=== PATIENT | male | born 1970 | race Two or more races ===

== ENCOUNTER 2021-11-23 13:20 | Emergency (ER) | payer OTHER ==
[~2021-11-23] VITALS: Ht 177.8 cm; Wt 95.3 kg
[2021-11-23 15:14] LABS: Albumin 3.9 g/dL (3.4-5.0); Calcium 8.2 mg/dL (8.5-10.1); Potassium 4.2 mmol/L (3.5-5.1)
[2021-11-23 15:19] LABS: Basophils # (auto) 0 10 ^3/uL (0-0.2); Basophils % (auto) 0.5 % (0.0-2.0); Eosinophils # (auto) 0 10 ^3/uL (0-0.8); Hemoglobin 14.3 g/dL (13.5-17.5); Monocytes # (auto) 0.4 10 ^3/uL (0-1.3); Neutrophils # (auto) 5.8 10 ^3/uL (1.6-8.6)
[2021-11-23 15:20] LABS: BUN/Creatinine Ratio 8.4; Bilirubin, Total 0.4 mg/dL (0.2-1.0); Eosinophils % (auto) 0.5 % (0.0-7.0); Hematocrit 41.8 % (41.0-53.0); Lymphocytes # (auto) 1.8 10 ^3/uL (0.4-5.4); Lymphocytes % (auto) 22.4 % (10.0-50.0); Mean Corpuscular Hemoglobin 29.2 pg (28.0-32.0); Mean Corpuscular Hgb Conc. 34.2 g/dL (32.0-36.0); Mean Corpuscular Volume 85.5 fL (80.0-100.0); Monocytes % (auto) 5.3 % (0.0-12.0); Neutrophils % (auto) 71.3 % (37.0-80.0); Nucleated Red Blood Cells % 0.1 %; Red Blood Cells 4.89 10^6/uL (4.5-5.90); Red Cell Distribution Width 14.3 % (11.8-14.3); Total Protein 7.9 g/dL (6.4-8.2); White Blood Cell 8.2 10^3/uL (4.4-10.8)
[2021-11-23] MEDS ORDERED: LABETALOL HCL 200 MG TAB PO ONE (16:30)
[2021-11-23 17:50] VITALS: BP 116/71
== END 2021-11-23 18:34 | disposition home or self-care (01) ==
LOC: ER 13:20
DX: I10 Essential (primary) hypertension (principal)
CPT/HCPCS: 36415; 71046; 80053; 84484; 85025; 93005

== ENCOUNTER 2025-06-13 11:23 | Inpatient (IN) | payer MEDICAID, OTHER ==
[~2025-06-13] VITALS: Ht 177.8 cm; Wt 89.6 kg
--- NOTE | 2025-06-13 11:47 | ED.PDOC ---
GI ASSESSMENT HPI Comments A 55-YEAR-OLD MALE WITH A HISTORY OF HYPERTENSION, DIABETES, AND ANXIETY, PRESENTS TO THE ED WITH A C/C OF GENERAL ABDOMINAL PAIN, WITH THE ASSOCIATED RADIATION TO THE CHEST CAUSING DISCOMFORT AT NIGHT. PATIENT STATES THAT HIS SYMPTOMS HAS BEEN ONSET FOR THE PAST 2 MONTHS WITH NO ALLEVIATING FACTORS, BUT HE WORSENING FACTOR UPON GOING TO BED. PT ALREADY TOOK ANTIBIOTIC AND PAIN MEDICATION, IT DID NOT HELP HIS ABD PAIN. RECENTLY, ABD PAIN GOT WORSE. PATIENT DENIES FEVER, SOB, CHEST PAIN, NAUSEA, VOMITING, DIARRHEA, DYSURIA, OR ANY OTHER ASSOCIATED SYMPTOMS, MODIFIERS AT THIS TIME. PT IS ALERT, ORIENTATION X4 WITH NORMAL GAIT. Chief Complaint: Abdominal Pain Time Seen by MD: 11:41 Primary Care Provider: NONE Reviewed Notes: Nurses Notes, Medications, Allergies Allergies: Coded Allergies: NO KNOWN ALLERGIES (Unverified , 11/23/21) Information Source: Patient Mode of Arrival: Ambulatory Timing: Months Duration: Since onset, Intermittent, Days Prehospital treatment: None Quality: Aching, Sharp, Colicky Vomitus: None Stool: Normal Severity: Moderate Recent: None Recent Hx of: None Pain Location: Epigastric, RLQ, LLQ, Periumbilical, Suprapubic Modifying Factors: Exertion Associated sign and symptoms: Abdominal Pain Past Medical History PAST MEDICAL HISTORY: Anxiety, DM, HTN Surgical History: Denies all surgeries Family History Family History: Reviewed,noncontributory to illness Social History Smoker: Non-Smoker Alcohol: Denies ETOH Use Drugs: Denies Drug Use Lives In: Home Constitutional: reports: others (ANXIOUS ); denies: chills, diaphoresis, fatigue, fever, malaise, sweats, weakness EENTM: denies: blurred vision, double vision, ear bleeding, ear discharge, ear drainage, ear pain, ear ringing, eye pain, eye redness, hearing loss, mouth pain, mouth swelling, nasal discharge, nose bleeding, nose congestion, nose p ain, photophobia, tearing, throat pain, throat swelling, voice changes, others Respiratory: denies: cough, hemoptysis, orthopnea, SOB at rest, shortness of breath, SOB with excertion, stridor, wheezing, others Cardiovascular: denies: chest pain, dizzy spells, diaphoresis, Dyspnea on exertion, edema, irregular heart beat, left arm pain, lightheadedness, palpitations, PND, syncope, others Gastrointestinal: reports: abdominal pain; denies: abdomen distended, blood streaked bowels, constipated, diarrhea, dysphagia, difficulty swallowing, hematemesis, melena, nausea, poor appetite, poor fluid intake, rectal bleeding, rectal pain, vomiting, others Genitourinary: denies: burning, dysuria, flank pain, frequency, hematuria, incontinence, penile discharge, penile sore, pain, testicle pain, testicle swelling, urgency, others Neurological: denies: dizziness, fainting, headache, left sided numbness, left sided weakness, numbness, paresthesia, pre-existing deficit, right sided numbness, right sided weakness, seizure, speech problems, tingling, tremors, weakness, others Musculoskeletal: denies: back pain, gout, joint pain, joint swelling, muscle pain, muscle stiffness, neck pain, others Integumetry: denies: bruises, change in color, change in hair/nails, dryness, laceration, lesions, lumps, rash, wounds, others Allergic/Immunocompromised: denies: Difficulty Healing, Frequent Infections, Hives, Itching, others Hematologic/Lymphatic: denies: anemia, blood clots, easy bleeding, easy bruising, swollen glands, others Endocrine: denies: excessive hunger, excessive sweating, excessive thirst, excessive urination, flushing, intolerance to cold, intolerance to heat, unexplained weight gain, unexplained weight loss, others Psychiatric: denies: anxiety, bipolar disorder, depression, hopeless, panic disorder, schizophrenia, sleepless, suicidal, others All Other Systems: Reviewed and Negative Physical Exam General Appearance: Moderate Distress, Normal HEENT: Normal ENT Inspection, PERRL/EOMI, Pharynx Normal, TMs Normal Neck: Full Range of Motion, Non-Tender, Normal, Normal Inspection Respiratory: Chest Non-Tender, Lungs Clear, No Accessory Muscle Use, No Respiratory Distress, Normal Breath Sounds Cardiovascular: No Edema, No JVD, No Murmur, No Gallop, Normal Peripheral Pulses, Regular Rate/Rhythm Breast Exam: Deferred Gastrointestinal: Epigastric, LLQ, No Organomegaly, No Pulsatile Mass, Normal Bowel Sounds, RLQ, Soft, Tenderness (GENERAL ABD WITH MILD GUARDING, NO REBOUND TENDERNESS. ) Genitalia: Deferred Pelvic: Normal External Exam Rectal: Deferred Extremities: No calf tenderness, Normal capillary refill, Normal inspection, Normal range of motion, Non-tender, No pedal edema Musculoskeletal : Apperance: Normal Neurologic: Alert, certified pedorthotist II-XII nml as Tested, No Motor Deficits, Normal Affect, Normal Mood, No Sensory Deficits Cerebellar Function: Normal Reflexes: Normal Skin: Dry, Normal Color, Warm Peripheral Pulses: 2+ carotid (R), 2+ carotid (L) Lymphatic: No Adenopathy EKG EKG : Pulse Rate (adult): 82 [place]: Normal Block: None Hypertrophy: None ST: Normal Was a procedure done? Was a procedure done?: No GI differential Dx Differential Diagnosis: Appendicitis, Bowel Obstruction, Cholangitis, Cholecystitis, Constipation, Diverticular disease, Gastritis/PUD, Gastroenteritis, Inflammatory BD, Pancreatitis, Trauma intraabdominal, Urinary Obstruction, UTI, Urolithiasis, Dehydration, Drug toxicity, Electrolyte Imbalanc e, Food Poisoning, Bacterial, Parasitic, Esophageal Varicies, Stress Ulcer, Kidney Stone X-Ray, Labs, Meds, VS Vital Signs Date Time Temp Pulse Resp B/P (MAP) Pulse Ox O2 Delivery O2 Flow Rate FiO2 06/13/25 14:44 98.2 78 16 141/93 (109) 99 98.2 06/13/25 14:42 84 20 97 Room Air* 0 21 06/13/25 14:16 82 06/13/25 11:31 86 06/13/25 11:24 98.1 95 18 143/94 97 98.1 Lab Test 06/13/25 13:08 06/13/25 11:40 Range/Units Urine Color Yellow Yellow Urine Clarity Clear Clear Urine pH 5.5 5.0-9.0 Urine Specific [place] 1.023 1.001-1.035 Urine Protein Negative Negative Urine Ketones 1+ H Negative Urine Blood Negative Negative /uL Urine Nitrite Negative Negative Urine Bilirubin Negative Negative Urine Urobilinogen Normal Negative mg/dL Urine Leukocyte Esterase Trace Negative /uL Urine RBC 1 0 - 3 /hpf Urine Microscopic WBC 1 0-3 /HPF Urine Squamous Epithelial Cells Few <5 /hpf Urine Bacteria None seen None Seen /hpf Urine Glucose 4+ H Normal mg/dL White Blood Count 8.8 4.4-10.8 10^3/uL Red Blood Count 5.53 4.5-5.90 10^6/uL Hemoglobin 15.9 13.5-17.5 g/dL Hematocrit 46.2 41.0-53.0 % Mean Corpuscular Volume 83.5 80.0-100.0 fL Mean Corpuscular Hemoglobin 28.7 28.0-32.0 pg Mean Corpuscular Hemoglobin Concent 34.4 32.0-36.0 g/dL Red Cell Distribution Width 13.0 11.8-14.3 % Platelet Count 226 140-450 10^3/uL Mean Platelet Volume 9.0 6.9-10.8 fL Neutrophils (%) (Auto) 67.1 37.0-80.0 % Lymphocytes (%) (Auto) 26.6 10.0-50.0 % Monocytes (%) (Auto) 5.0 0.0-12.0 % Eosinophils (%) (Auto) 0.9 0.0-7.0 % Basophils (%) (Auto) 0.4 0.0-2.0 % Neutrophils # (Auto) 5.9 1.6-8.6 10 ^3/uL Lymphocytes # (Auto) 2.3 0.4-5.4 10 ^3/uL Monocytes # (Auto) 0.4 0-1.3 10 ^3/uL Eosinophils # (Auto) 0.1 0-0.8 10 ^3/uL Basophils # (Auto) 0 0-0.2 10 ^3/uL Nucleated Red Blood Cells 0.1 % Sodium Level 137 136-145 mmol/L Potassium Level 3.8 3.5-5.1 mmol/L Chloride Level 104 98-107 mmol/L Carbon Dioxide Level 23 20-31 mmol/L Anion Gap 10 5-15 Blood Urea Nitrogen 5 L 9-23 mg/dL Creatinine 0.95 0.700-1.30 mg/dL Glomerular Filtration Rate Calc 93 >90 mL/min BUN/Creatinine Ratio 5.3 L 10.0-20.0 Serum Glucose 242 H 74-106 mg/dL Hemoglobin A1c 9.7 H <5.7 % A1C Calcium Level 9.1 8.7-10.4 mg/dL Total Bilirubin 0.5 0.2-1.0 mg/dL Aspartate Amino Transferase (AST) 42 H 13-40 U/L Alanine Aminotransferase (ALT) 64 H 7-40 U/L Alkaline Phosphatase 94 46-116 U/L Creatine Kinase 57 46-171 U/L Troponin I High Sensitivity < 3 L </=54 ng/L Total Protein 7.7 5.7-8.2 g/dL Albumin 4.6 3.2-4.8 g/dL Lipase 39 12-53 U/L Current Medications Medications (Trade) Dose Ordered Sig/Jewel Route Start Time Stop Time Status Last Admin Sodium Chloride 1,000 ml @ 1,000 mls/hr Q1H ONCE IV 06/13/25 14:00 06/13/25 14:59 DC 06/13/25 14:41 Ketorolac Tromethamine (Toradol Injection) 30 mg ONCE ONCE IV 06/13/25 14:00 06/13/25 14:01 DC 06/13/25 14:40 Lactated Ringer's 1,000 ml @ 100 mls/hr Q10H ONCE IV 06/13/25 15:30 06/14/25 01:29 06/13/25 15:58 PATIENT: ELIZABETH JEAN ACCT: [id number] UNIT: [id number] : 1970 LOC: ER ROOM / BED: / AGE / SEX: 55 / M ADM STATUS: REG ER SERVICE [id number] ORDERING PHYSICIAN: MARIEL PICHARDO PROCEDURE(s): ABPL - CT AB PEL WO CON-NO ORAL OR IV REASON: GENERAL ABD PAIN X 2 MONTHS ORDER NUMBER(s): [id number], ACCESSION NUMBER(s): [id number] CT abdomen and pelvis without contrast INDICATION: GENERAL ABD PAIN X 2 MONTHS TECHNIQUE: Serial axial images were performed through the abdomen and pelvis and then reformatted in the sagittal and coronal plane. All CT scans at this medical facility are performed using dose modulation techniques as appropriate to a performed exam including the following: Automated exposure control was utilized; adjustment of the MA and/or KvP according to patient size; and use of iterative reconstruction technique. FINDINGS: Liver and spleen are normal in size without focal mass. No renal masses, stones or hydronephrosis. No masses or enlargement of the adrenal glands or pancreas. No biliary dilatation. No gallstones. No distention of bowel loops to suggest mechanical obstruction of bowel. The appendix is normal in appearance. No free fluid. Within the pelvis, bladder is smooth walled without stones. No abnormal masses or fluid collections. IMPRESSION: 1. No acute disease seen in the abdomen or pelvis. 2. Note made that evaluation of the GI tract is limited by lack of IV contrast Computed Tomographic Radiation Dosimetry Report: Total CTDI vol = 11.0mGy Total DLP = 3.92mGy-cm Low dose protocols were performed. PATIENT: ELIZABETH JEANACCT: [id number]: [id number] : 1970 LOC: ER ROOM / BED: / AGE / SEX: 55 / M ADM STATUS: REG ER SERVICE [id number] ORDERING PHYSICIAN: MARIEL PICHARDO PROCEDURE(s): GBUS - GALLBLADDER REASON: UPPER ABD PAIN ORDER NUMBER(s): [id number], ACCESSION NUMBER(s): [id number] INDICATION: UPPER ABD PAIN TECHNIQUE: Ultrasound gallbladder. Multiple real-time sonographic images of the abdomen were obtained. COMPARISON: None FINDINGS: Parenchymal changes suggesting steatosis. The liver measures 15.3 cm. No intrahepatic biliary ductal dilatation is noted. The gallbladder wall measures 0.2 cm and is unremarkable. No gallstones or sludge is seen. The common duct measures 0.4 cm and is unremarkable. No pericholecystic fluid is noted. Negative ultrasound Tyson's sign The right kidney measures 9.3 cm. No hydronephrosis. The pancreas is not well visualized due to obscuration from bowel gas. IMPRESSION: 1. No cholelithiasis, thickened gallbladder wall, or dilated common bile duct. Negative sonographic tyson's sign. 2. 15.3 cm liver with parenchymal changes consistent with steatosis. ATED BY: OTTO LOPEZ Jr., DO DICTATED DATE/TIME: 06/13/251436 SIGNED BY: OTTO LOPEZ Jr., SIGNED DATE/TIME: 06/13/251436 X-Ray, Labs, Meds, VS Comment EXTERNAL MEDICAL RECORDS REVIEWED: [NONE] INDEPENDENT HISTORIANS: [NONE] SOCIAL DETERMINANTS OF HEALTH: [NONE] LABS ORDERED: CBC, CMP, UA, LIPASE, TROP I REVIEWED AND INTERPRETED RESULTS: NORMAL IMAGING ORDERED: ABDOMEN PELVIC CT TREATMENTS ORDERED: 0.9 NS 1L AND TORADOL 30MG IVP PROCEDURES PERFORMED: NONE CRITICAL CARE TIME: NONE I HAVE DISCUSSED THE PATIENT WITH THE ATTENDING PHYSICIAN (YARA) AND S/HE AGREES WITH THE PATIENT'S PLAN OF CARE AND DISPOSITION. A 55-YEAR-OLD MALE PRESENTED TO THE ED WITH A C/C OF INTRACTABLE ABDOMINAL PAIN THAT RADIATED UP TO HIS CHEST, PATIENT'S LABS AND ABDOMEN AND PELVIC CT WERE NOTED TO BE UNREMARKABLE. PATIENT NOTED TAKEN MULTIPLE DIFFERENT FORMS OF ANTIBIOTICS WITHOUT ANY ALLEVIATION AND PT NEEDS TO BE ADMITTED HOSPITAL FOR FURTHER EVALUATION AND TREATMENT. Time of 1ST Reevaluation: 12:12 Reevaluation 1ST: Unchanged Time of 2ND Reevaluation: 14:00 Reevaluation 3RD: Unchanged Patient Education/Counseling: Diagnosis, Treatment Family Education/Counseling: Diagnosis, Treatment SEPSIS Sepsis Screen Date sepsis recognized/suspect: Jun 13, 2025 Time Sepsis recognized/suspect: 1124 Recent Procedure: No On Antibiotic Therapy: No Respiratory Rate >20: No Heart Rate >90: Yes Temp<36 C (96.8 F) or >38.3 C: No SBP <90 or MAP <65 mmHG: No New Acute Mental Status Change: No Is the patient on CPAP, BIPAP,: No Physician Orders Electrocardigram (06/13/25 11:37) Electrocardigram (06/13/25 11:44) Ct Ab Pel Wo Con-No Oral Or Iv (06/13/25 11:44) Heplock Iv (06/13/25 ) Gallbladder (06/13/25 07:26) Pantoprazole (Protonix) (06/14/25 10:00) Clear Liq Diet (06/13/25 Dinner) Lactated Ringer's (06/13/25 15:30) Vital Signs Date Time Temp Pulse Resp B/P (MAP) Pulse Ox O2 Delivery O2 Flow Rate FiO2 06/13/25 14:44 98.2 78 16 141/93 (109) 99 98.2 06/13/25 14:42 84 20 97 Room Air* 0 21 06/13/25 14:16 82 06/13/25 11:31 86 06/13/25 11:24 98.1 95 18 143/94 97 98.1 Laboratory Tests Test 06/13/25 11:40 White Blood Count 8.8 10^3/uL (4.4-10.8) Medications Medications Dose Ordered Sig/Jewel Route Start Time Stop Time Status Last Admin Dose Admin Ketorolac Tromethamine 30 mg ONCE ONCE IV 06/13/25 14:00 06/13/25 14:01 DC 06/13/25 14:40 Lactated Ringer's 1,000 ml @ 100 mls/hr Q10H ONCE IV 06/13/25 15:30 06/14/25 01:29 06/13/25 15:58 Sodium Chloride 1,000 ml @ 1,000 mls/hr Q1H ONCE IV 06/13/25 14:00 06/13/25 14:59 DC 06/13/25 14:41 Departure 1 Departure Time of Disposition: 14:13 Impression: Primary Impression: Intractable abdominal pain Additional Impression: Uncontrolled diabetes mellitus Qualified Codes: E11.65 - Type 2 diabetes mellitus with hyperglycemia Disposition: ADMITTED INPATIENT Condition: Serious Discharged With: Other (ADMISSION) Critical Care Note Critical Care Time?: No Stability Stability form required: Yes Unstable for transfer: Requires medication, ED Physician Assesment, Possible rapid decline Heart Score Heart Score: Heart Score Response (Comments) Value History N/A 0 EKG N/A 0 Age N/A 0 Risk Factors N/A 0 Troponin N/A 0 Total 0 I personally scribed for MARIEL PICHARDO ([email or web address]) on 06/13/25 at 11:47. Electronically submitted by Enrrique Odom ([email or web address]). I personally scribed for MARIEL PICHARDO ([email or web address]) on 06/13/25 at 12:38. Electronically submitted by Enrrique Odom ([email or web address]). I personally scribed for MARIEL PICHARDO ([email or web address]) on 06/13/25 at 13:55. Electronically submitted by Enrrique Odom ([email or web address]). I personally scribed for MARIEL PICHARDO ([email or web address]) on 06/13/25 at 13:58. Electronically submitted by Enrrique Odom ([employer]). MARIEL PICHARDO Jun 13, 2025 11:47
[2025-06-13 12:24] LABS: Hemoglobin 15.9 g/dL (13.5-17.5); Nucleated Red Blood Cells % 0.1 %
--- NOTE | 2025-06-13 12:26 | DVH ---
CT abdomen and pelvis without contrast INDICATION: GENERAL ABD PAIN X 2 MONTHS TECHNIQUE: Serial axial images were performed through the abdomen and pelvis and then reformatted in the sagittal and coronal plane. All CT scans at this medical facility are performed using dose modula tion techniques as appropriate to a performed exam including the following: Automated exposure contro l was utilized; adjustment of the MA and/or KvP according to patient size; and use of iterative recon struction technique. FINDINGS: Liver and spleen are normal in size without focal mass. No renal masses, stones or hydronep hrosis. No masses or enlargement of the adrenal glands or pancreas. No biliary dilatation. No gallsto sakina. No distention of bowel loops to suggest mechanical obstruction of bowel. The appendix is normal in appearance. No free fluid. Within the pelvis, bladder is smooth walled without stones. No abnormal masses or fluid collections. IMPRESSION: 1. No acute disease seen in the abdomen or pelvis. 2. Note made that evaluation of the GI tract is limited by lack of IV contrast Computed Tomographic Radiation Dosimetry Report: Total CTDI vol = 11.0mGy Total DLP = 3.92mGy-cm Low dose protocols were performed.
[2025-06-13 12:27] LABS: Hematocrit 46.2 % (41.0-53.0); Mean Corpuscular Hemoglobin 28.7 pg (28.0-32.0); Mean Corpuscular Volume 83.5 fL (80.0-100.0)
[2025-06-13 12:34] LABS: Albumin 4.6 g/dL (3.2-4.8); Alkaline Phosphatase 94 U/L (46-116); Anion Gap 10 (5-15); BUN/Creatinine Ratio 5.3 (10.0-20.0); Calcium 9.1 mg/dL (8.7-10.4); Carbon Dioxide 23 mmol/L (20-31); Chloride 104 mmol/L (98-107); Lipase 39 U/L (12-53); Potassium 3.8 mmol/L (3.5-5.1); Sodium 137 mmol/L (136-145); Total Protein 7.7 g/dL (5.7-8.2)
[2025-06-13 12:35] LABS: Bilirubin, Total 0.5 mg/dL (0.2-1.0)
[2025-06-13 12:40] LABS: Alanine Aminotransferase 64 U/L (7-40); Blood Urea Nitrogen 5 mg/dL (9-23); Glucose 242 mg/dL (74-106)
[2025-06-13 13:30] LABS: Urine Protein, UAD Negative (Negative)
--- NOTE | 2025-06-13 14:39 | DVH ---
INDICATION: UPPER ABD PAIN TECHNIQUE: Ultrasound gallbladder. Multiple real-time sonographic images of the abdomen were obtaine d. COMPARISON: None FINDINGS: Parenchymal changes suggesting steatosis. The liver measures 15.3 cm. No intrahepatic bili chung ductal dilatation is noted. The gallbladder wall measures 0.2 cm and is unremarkable. No gallstones or sludge is seen. The com mon duct measures 0.4 cm and is unremarkable. No pericholecystic fluid is noted. Negative ultrasound Tyson's sign The right kidney measures 9.3 cm. No hydronephrosis. The pancreas is not well visualized due to obscuration from bowel gas. IMPRESSION: 1. No cholelithiasis, thickened gallbladder wall, or dilated common bile duct. Negative sonographic m urphy's sign. 2. 15.3 cm liver with parenchymal changes consistent with steatosis.
[2025-06-13] MEDS: KETOROLAC TROMETH 30 MG/ML 1ML VIAL IV ONE (14:40)
[2025-06-13] MEDS: SODIUM CHLORIDE 0.9% 1,000 ML IV ONE (14:41)
[2025-06-13 14:42] VITALS: PULSE 84; RESP 20; O2SAT 97
--- NOTE | 2025-06-13 15:19 | DVHHP2 ---
Admitting Diagnosis: Abdominal pain History of Present Illness A 55-YEAR-OLD MALE WITH A HISTORY OF HYPERTENSION, DIABETES, AND ANXIETY, PRESENTS TO THE ED WITH A C/C OF GENERAL ABDOMINAL PAIN, WITH THE ASSOCIATED RADIATION TO THE CHEST CAUSING DISCOMFORT AT NIGHT. PATIENT STATES THAT HIS SYMPTOMS HAS BEEN ONSET FOR THE PAST 2 MONTHS WITH NO ALLEVIATING FACTORS, BUT HE WORSENING FACTOR UPON GOING TO BED. PT ALREADY TOOK ANTIBIOTIC AND PAIN MEDICATION, IT DID NOT HELP HIS ABD PAIN. RECENTLY, ABD PAIN GOT WORSE. PATIENT DENIES FEVER, SOB, CHEST PAIN, NAUSEA, VOMITING, DIARRHEA, DYSURIA, OR ANY OTHER ASSOCIATED SYMPTOMS, MODIFIERS AT THIS TIME. PT IS ALERT, ORIENTATION X4 WITH NORMAL GAIT. PAST MEDICAL HISTORY: Anxiety, DM, HTN Surgical History: Denies all surgeries Family History Family History: Reviewed,noncontributory to illness Social History Smoker: Non-Smoker Alcohol: Denies ETOH Use Drugs: Denies Drug Use Lives In: Home Allergies: Coded Allergies: NO KNOWN ALLERGIES (Unverified , 11/23/21) Current Medications Current Medications Medications (Trade) Dose Ordered Sig/Jewel Route PRN Reason Start Time Stop Time Status Last Admin Pantoprazole Sodium (Protonix) 40 mg DAILY IV 06/14/25 10:00 Vital Signs Vital Signs Date Time Temp Pulse Resp B/P (MAP) Pulse Ox O2 Delivery O2 Flow Rate FiO2 06/13/25 14:44 98.2 78 16 141/93 (109) 99 98.2 06/13/25 14:42 Room Air* 0 21 Physical Exam Generally-35 years old male, well nourished well developed. Mild distress HEENT-atraumatic, normocephalic Heart-regular rate and rhythm Lungs clear to auscultate Abdomen soft diffuse soft nontender nondistended Musculoskeletal-no edema cyanosis Neuro-AO x3, no focal deficits SEPSIS Sepsis Screen Date sepsis recognized/suspect: Jun 13, 2025 Time Sepsis recognized/suspect: 1125 Recent Procedure: No On Antibiotic Therapy: No Respiratory Rate >20: No Heart Rate >90: Yes Temp<36 C (96.8 F) or >38.3 C: No SBP <90 or MAP <65 mmHG: No New Acute Mental Status Change: No Is the patient on CPAP, BIPAP,: No Physician Orders Electrocardigram (06/13/25 11:37) Electrocardigram (06/13/25 11:44) Ct Ab Pel Wo Con-No Oral Or Iv (06/13/25 11:44) Heplock Iv (06/13/25 ) Gallbladder (06/13/25 07:26) Pantoprazole (Protonix) (06/14/25 10:00) Clear Liq Diet (06/13/25 Dinner) Lactated Ringer's (06/13/25 15:30) Admit (06/13/25 16:23) Code Status (06/13/25:) Vital Signs .PER UNIT PROTOCOL (06/13/25 16:23) Review Orders With Adm. (06/13/25 16:) Encourage Activity As Tolerate (06/13/25:) Sodium Chloride Lock (Saline Lock Ns) (06/13/25 22:00) Docusate Sodium Capsule (Colace Capsule) (06/13/25 16:30) Acetaminophen Tablet (Tylenol Tablet) (06/13/25 16:30) Notify Md Of Changes From Base (06/13/25:) Advance Directive (06/13/25 16:23) Patient Condition (06/13/25 16:) Allergies (06/13/25 16:23) Hydrocodone-Acet 5/325mg Tab ([place] 5/32 (06/13/25 16:30) Ondansetron Hcl (Zofran) (06/13/25 16:30) Lovenox 40mg (06/14/25 10:00) Glucose Blood (Accu-Chek Comfort Curve T (06/13/25 17:00) Mild Sliding Scale (06/13/25 17:00) Dextrose 50% Syringe (06/13/25 16:30) Complete Blood Count (06/14/25 05:00) Complete Blood Count (06/15/25 05:00) Complete Blood Count (06/16/25 05:00) Complete Blood Count (06/17/25 05:00) Complete Blood Count (06/18/25 05:00) Comprehensive Metabolic Panel (06/14/25 05:00) Comprehensive Metabolic Panel (06/15/25 05:00) Comprehensive Metabolic Panel (06/16/25 05:00) Comprehensive Metabolic Panel (06/17/25 05:00) Comprehensive Metabolic Panel (06/18/25 05:00) Amlodipine Tablet (Norvasc Tablet) (06/14/25 10:00) Lisinopril Tablet (Zestril Tablet) (06/14/25 10:00) Vital Signs Date Time Temp Pulse Resp B/P (MAP) Pulse Ox O2 Delivery O2 Flow Rate FiO2 06/13/25 14:44 98.2 78 16 141/93 (109) 99 98.2 06/13/25 14:42 84 20 97 Room Air* 0 21 06/13/25 14:16 82 06/13/25 11:31 86 06/13/25 11:24 98.1 95 18 143/94 97 98.1 Laboratory Tests Test 06/13/25 11:40 White Blood Count 8.8 10^3/uL (4.4-10.8) Medications Medications Dose Ordered Sig/Jewel Route Start Time Stop Time Status Last Admin Dose Admin Ketorolac Tromethamine 30 mg ONCE ONCE IV 06/13/25 14:00 06/13/25 14:01 DC 06/13/25 14:40 Lactated Ringer's 1,000 ml @ 100 mls/hr Q10H ONCE IV 06/13/25 15:30 06/14/25 01:29 06/13/25 15:58 Sodium Chloride 1,000 ml @ 1,000 mls/hr Q1H ONCE IV 06/13/25 14:00 06/13/25 14:59 DC 06/13/25 14:41 Results Labs Test 06/13/25 13:08 06/13/25 11:40 Range/Units Urine Color Yellow Yellow Urine Clarity Clear Clear Urine pH 5.5 5.0-9.0 Urine Specific [place] 1.023 1.001-1.035 Urine Protein Negative Negative Urine Ketones 1+ H Negative Urine Blood Negative Negative /uL Urine Nitrite Negative Negative Urine Bilirubin Negative Negative Urine Urobilinogen Normal Negative mg/dL Urine Leukocyte Esterase Trace Negative /uL Urine RBC 1 0 - 3 /hpf Urine Microscopic WBC 1 0-3 /HPF Urine Squamous Epithelial Cells Few <5 /hpf Urine Bacteria None seen None Seen /hpf Urine Glucose 4+ H Normal mg/dL White Blood Count 8.8 4.4-10.8 10^3/uL Red Blood Count 5.53 4.5-5.90 10^6/uL Hemoglobin 15.9 13.5-17.5 g/dL Hematocrit 46.2 41.0-53.0 % Mean Corpuscular Volume 83.5 80.0-100.0 fL Mean Corpuscular Hemoglobin 28.7 28.0-32.0 pg Mean Corpuscular Hemoglobin Concent 34.4 32.0-36.0 g/dL Red Cell Distribution Width 13.0 11.8-14.3 % Platelet Count 226 140-450 10^3/uL Mean Platelet Volume 9.0 6.9-10.8 fL Neutrophils (%) (Auto) 67.1 37.0-80.0 % Lymphocytes (%) (Auto) 26.6 10.0-50.0 % Monocytes (%) (Auto) 5.0 0.0-12.0 % Eosinophils (%) (Auto) 0.9 0.0-7.0 % Basophils (%) (Auto) 0.4 0.0-2.0 % Neutrophils # (Auto) 5.9 1.6-8.6 10 ^3/uL Lymphocytes # (Auto) 2.3 0.4-5.4 10 ^3/uL Monocytes # (Auto) 0.4 0-1.3 10 ^3/uL Eosinophils # (Auto) 0.1 0-0.8 10 ^3/uL Basophils # (Auto) 0 0-0.2 10 ^3/uL Nucleated Red Blood Cells 0.1 % Sodium Level 137 136-145 mmol/L Potassium Level 3.8 3.5-5.1 mmol/L Chloride Level 104 98-107 mmol/L Carbon Dioxide Level 23 20-31 mmol/L Anion Gap 10 5-15 Blood Urea Nitrogen 5 L 9-23 mg/dL Creatinine 0.95 0.700-1.30 mg/dL Glomerular Filtration Rate Calc 93 >90 mL/min BUN/Creatinine Ratio 5.3 L 10.0-20.0 Serum Glucose 242 H 74-106 mg/dL Hemoglobin A1c 9.7 H <5.7 % A1C Calcium Level 9.1 8.7-10.4 mg/dL Total Bilirubin 0.5 0.2-1.0 mg/dL Aspartate Amino Transferase (AST) 42 H 13-40 U/L Alanine Aminotransferase (ALT) 64 H 7-40 U/L Alkaline Phosphatase 94 46-116 U/L Troponin I High Sensitivity < 3 L </=54 ng/L Total Protein 7.7 5.7-8.2 g/dL Albumin 4.6 3.2-4.8 g/dL Lipase 39 12-53 U/L Primary Diagnosis Abdominal pain possible gastroparesis, gastritis Plan CT abdomen and pelvis shows no acute abdominal infection or Protonix Ultrasound right upper quadrant shows no gallstones PPI for gastritis A1c level to assess for possible gastroparesis IV fluids Urine drug studies CK level for possible we will also injury resume bp med, hold metformin 500mg tid insulin ss. fs goal 140-180 Full code Lovenox for DVT prophylaxis PPI for GI prophylaxis Regular diet Plan discussed with: Patient, Spouse Problems List: (1) Intractable abdominal pain Status: Acute Date of Service: Jun 13, 2025 Billing Provider: BONIFACIO BOB MD Common Visit Codes: [id number] INP/OBS CARE (MOD) BONIFACIO BOB MD Jun 13, 2025 15:19
[2025-06-13] MEDS: LACTATED RINGER'S 1,000 ML IV ONE (15:58)
[2025-06-13] MEDS ORDERED: DEXTROSE (50%) 50ML SYRG IV PRN (16:30)
[2025-06-13] MEDS ORDERED: HYDROcodone-ACET 5/325MG TAB PO PRN (16:30)
[2025-06-13] MEDS ORDERED: ONDANSETRON HCL 4 MG/2 ML VIAL IV PRN (16:30)
[2025-06-13] MEDS ORDERED: DOCUSATE SOD 100 MG CAP PO PRN (16:30)
[2025-06-13] MEDS: InsuLIN REG 1unit/0.01ml Soln (100units/ml) SC SCH (17:00)
[2025-06-13] MEDS: ACCU-CHEK COMFORT CURVE STRIP VI SCH (17:27)
[2025-06-13 17:53] VITALS: BP 163/111; PULSE 74
[2025-06-13 18:29] VITALS: BP 161/98; PULSE 82; RESP 16; TEMP 97.4; O2SAT 97
[2025-06-13] MEDS: ACETAMINOPHEN 325 MG TAB PO PRN (18:41)
[2025-06-13] MEDS ORDERED: AMLO1TAB22 PO (18:48)
[2025-06-13] MEDS ORDERED: ENAL1TAB42 PO (18:48)
[2025-06-13] MEDS ORDERED: METR-344 PO (18:48)
[2025-06-13] MEDS ORDERED: POM PO (18:48)
[2025-06-13] MEDS ORDERED: METF-370 PO (18:48)
[2025-06-13 20:53] VITALS: BP 141/83; PULSE 86; RESP 16; TEMP 97.7; O2SAT 98
[2025-06-13] MEDS: SODIUM CHLOR 0.9% PF (SALINE LOCK) 10ML VIAL/SYR IV SCH (21:56)
--- NOTE | 2025-06-14 00:27 | ECG ---
[facility] [place] Test Date: 2025-06-13 Test Time: 12:02:47 Pat Name: ELIZABETH JEAN Department: Room: 0287 Gender: M Movers: HAIR : 1970 Requested By: MARIEL PICHARDO Order Number: [id number] Reading MD: Measurements Intervals [place] Rate: 82 P: 23 MO: 168 QRS: 3 QRSD: 86 T: -1 QT: 349 QTc: 408 Interpretive Statements Sinus rhythm Please click the below link to view image of tracing.
[2025-06-14 00:45] VITALS: BP 154/95; PULSE 64; RESP 18; TEMP 97.8; O2SAT 97
[2025-06-14] MEDS: hydrALAZINE HCL 20 MG/ML VL IV PRN (01:20)
[2025-06-14 05:00] VITALS: BP 140/97; PULSE 72; RESP 20; TEMP 98.1; O2SAT 98
[2025-06-14] MEDS: INSULIN LANTUS (GLARGINE) 1 /0.01ml (100units/ml) SC ONE (07:45)
[2025-06-14] MEDS: ACETAMINOPHEN 325 MG TAB PO SCH (07:45)
[2025-06-14 07:46] LABS: Albumin 4.1 g/dL (3.2-4.8); Alkaline Phosphatase 73 U/L (46-116); Anion Gap 10 (5-15); BUN/Creatinine Ratio 8.5 (10.0-20.0); Bilirubin, Total 0.6 mg/dL (0.2-1.0); Carbon Dioxide 23 mmol/L (20-31); Chloride 106 mmol/L (98-107); Sodium 139 mmol/L (136-145); Total Protein 6.8 g/dL (5.7-8.2)
[2025-06-14 07:47] LABS: Alanine Aminotransferase 54 U/L (7-40); Blood Urea Nitrogen 6 mg/dL (9-23); Calcium 8.7 mg/dL (8.7-10.4); Glucose 126 mg/dL (74-106); Potassium 3.3 mmol/L (3.5-5.1)
[2025-06-14 09:00] VITALS: BP 146/97; PULSE 71; RESP 16; TEMP 98.3; O2SAT 98
[2025-06-14 09:58] LABS: Nucleated Red Blood Cells % 0.2 %
[2025-06-14 10:01] LABS: Hematocrit 44.2 % (41.0-53.0); Hemoglobin 15.3 g/dL (13.5-17.5); Mean Corpuscular Hemoglobin 28.8 pg (28.0-32.0); Mean Corpuscular Volume 82.8 fL (80.0-100.0)
[2025-06-14] MEDS: PANTOPRAZOLE 40 MG/10 ML VIAL INJ IV SCH (10:22)
[2025-06-14] MEDS: LISINOPRIL 20 MG TAB PO SCH (10:23)
[2025-06-14] MEDS: ENOXAPARIN SOD 40 MG/0.4 ML SYRINGE SC SCH (10:23)
[2025-06-14] MEDS ORDERED: INSULIN LISPRO (HUMAN) 100 UNITS/ML ML SC SCH (11:30)
[2025-06-14] MEDS ORDERED: ENAL1TAB48 PO (12:49)
[2025-06-14] MEDS ORDERED: SITA100T7 PO (12:49)
[2025-06-14] MEDS ORDERED: METF-490 PO (12:49)
[2025-06-14] MEDS ORDERED: SUCR1SUS26 PO (12:49)
[2025-06-14] MEDS ORDERED: PANT40TA2 PO (12:49)
--- NOTE | 2025-06-14 12:52 | DVHDSRES ---
Discharge Summary Date of Admission Resident Creating Document: [place] SAHU RESDIKASHIF Jun 13, 2025 at 16:23 Date of Discharge: Jun 14, 2025 Labs/Diagnostic Data: Laboratory Results Test 06/14/25 09:18 06/14/25 05:55 06/14/25 05:43 06/14/25 05:32 White Blood Count 7.6 10^3/uL (4.4-10.8) Red Blood Count 5.33 10^6/uL (4.5-5.90) Hemoglobin 15.3 g/dL (13.5-17.5) Hematocrit 44.2 % (41.0-53.0) Mean Corpuscular Volume 82.8 fL (80.0-100.0) Mean Corpuscular Hemoglobin 28.8 pg (28.0-32.0) Mean Corpuscular Hemoglobin Concent 34.7 g/dL (32.0-36.0) Red Cell Distribution Width 12.7 % (11.8-14.3) Platelet Count 179 10^3/uL (140-450) Mean Platelet Volume 7.4 fL (6.9-10.8) Neutrophils (%) (Auto) 63.5 % (37.0-80.0) Lymphocytes (%) (Auto) 27.8 % (10.0-50.0) Monocytes (%) (Auto) 6.4 % (0.0-12.0) Eosinophils (%) (Auto) 1.8 % (0.0-7.0) Basophils (%) (Auto) 0.5 % (0.0-2.0) Neutrophils # (Auto) 4.8 10 ^3/uL (1.6-8.6) Lymphocytes # (Auto) 2.1 10 ^3/uL (0.4-5.4) Monocytes # (Auto) 0.5 10 ^3/uL (0-1.3) Eosinophils # (Auto) 0.1 10 ^3/uL (0-0.8) Basophils # (Auto) 0 10 ^3/uL (0-0.2) Nucleated Red Blood Cells 0.2 % Sodium Level 139 mmol/L (136-145) Potassium Level 3.3 mmol/L (3.5-5.1) Chloride Level 106 mmol/L (98-107) Carbon Dioxide Level 23 mmol/L (20-31) Anion Gap 10 (5-15) Blood Urea Nitrogen 6 mg/dL (9-23) Creatinine 0.71 mg/dL (0.700-1.30) Glomerular Filtration Rate Calc 107 mL/min (>90) BUN/Creatinine Ratio 8.5 (10.0-20.0) Serum Glucose 126 mg/dL (74-106) Calcium Level 8.7 mg/dL (8.7-10.4) Total Bilirubin 0.6 mg/dL (0.2-1.0) Aspartate Amino Transferase (AST) 33 U/L (13-40) Alanine Aminotransferase (ALT) 54 U/L (7-40) Alkaline Phosphatase 73 U/L (46-116) Total Protein 6.8 g/dL (5.7-8.2) Albumin 4.1 g/dL (3.2-4.8) POC Glucose 143 mg/dl (70-106) Plasma/Serum Blood Alcohol < 3.0 mg/dL (<10) Test 06/13/25 13:08 06/13/25 11:40 Urine Color Yellow (Yellow) Urine Clarity Clear (Clear) Urine pH 5.5 (5.0-9.0) Urine Specific [place] 1.023 (1.001-1.035) Urine Protein Negative (Negative) Urine Ketones 1+ (Negative) Urine Blood Negative /uL (Negative) Urine Nitrite Negative (Negative) Urine Bilirubin Negative (Negative) Urine Urobilinogen Normal mg/dL (Negative) Urine Leukocyte Esterase Trace /uL (Negative) Urine RBC 1 /hpf (0 - 3) Urine Microscopic WBC 1 /HPF (0-3) Urine Squamous Epithelial Cells Few /hpf (<5) Urine Bacteria None seen /hpf (None Seen) Urine Glucose 4+ mg/dL (Normal) Hemoglobin A1c 9.7 % A1C (<5.7) Creatine Kinase 57 U/L (46-171) Troponin I High Sensitivity < 3 ng/L (</=54) Lipase 39 U/L (12-53) Other Laboratory Tests 06/14/25 09:18 06/14/25 05:55 Brief Hx & Hospital Course: HISTORY OF PRESENT ILLNESS: A 55-YEAR-OLD MALE WITH A HISTORY OF HYPERTENSION, DIABETES, AND ANXIETY, PRESENTS TO THE ED WITH A C/C OF GENERAL ABDOMINAL PAIN, WITH THE ASSOCIATED RADIATION TO THE CHEST CAUSING DISCOMFORT AT NIGHT. PATIENT STATES THAT HIS SYMPTOMS HAS BEEN ONSET FOR THE PAST 2 MONTHS WITH NO ALLEVIATING FACTORS, BUT HE WORSENING FACTOR UPON GOING TO BED. PT ALREADY TOOK ANTIBIOTIC AND PAIN MEDICATION, IT DID NOT HELP HIS ABD PAIN. RECENTLY, ABD PAIN GOT WORSE. PATIENT DENIES FEVER, SOB, CHEST PAIN, NAUSEA, VOMITING, DIARRHEA, DYSURIA, OR ANY OTHER ASSOCIATED SYMPTOMS, MODIFIERS AT THIS TIME. PT IS ALERT, ORIENTATION X4 WITH NORMAL GAIT. PAST MEDICAL HISTORY: Anxiety, DM, HTN HOSPITAL COURSE: Patient was admitted at the line of peptic ulcer disease/gastritis. The patient was started on IV Protonix, IV fluid and ondansetron was given. During hospital admission, home medication were continued. The patient was also given insulin Lantus. Abdominal ultrasound showed, No cholelithiasis, thickened gallbladder wall, or dilated common bile duct. Negative sonographic bhat's sign and 15.3 cm liver with parenchymal changes consistent with steatosis. CT abdominopelvic performed, showed No acute disease seen in the abdomen or pelvis. On 06/13 10/26, the patient was feeling better since admission. Discharge plan discussed with the patient the patient discharged home. DISCHARGE PLAN: Follow up with the PCP within 1 week of the discharge. Follow up with the GI on outpatient basis. Follow up with the discharge Clinic within 1 week of the discharge. Protonix 40 mg b.i.d. Carafate 1 g 3 times daily for 10 days Enalapril 20 mg twice daily Metformin 1000 mg daily Sitagliptin 100 mg daily FINAL DIAGNOSIS: Abdominal pain, likely due to Possible peptic ulcer disease Possible gastritis Possible gastroparesis secondary to diabetes Hypertension Diabetes type 2 Dyslipidemia Fatty liver disease Hypokalemia Condition at Discharge: Good Final Diagnosis/Problems List Peptic ulcer disease Discharge Disposition: Home Discharge Instruct/Medications Diet: Regular Activity: No Restrictions, As Tolerated Follow Up/Referral: Follow up with the PCP within 1 week of the discharge. Follow up with GI on outpatient basis. Follow up with the discharge Clinic with a 2 week of the discharge. Medications: Protonix 40 mg b.i.d. Sucralfate 1 g 3 times daily Metformin 1000 mg daily Sitagliptin 100 mg daily Atorvastatin 40 mg daily Continue enalapril 20 mg twice a day Scheduled Amlodipine Besylate (Amlodipine Besylate), 2.5 MG PO HS, (Reported) Enalapril Maleate (Enalapril Maleate), 20 MG PO BID, (Reported) Enalapril Maleate (Enalapril Maleate), 20 MG PO BID Metformin Hydrochloride (Metformin Hcl), 500 MG PO TID, (Reported) Metformin Hydrochloride (Metformin Hcl Er), 1,000 MG PO DAILY Metronidazole (Flagyl), 500 MG PO TID, (Reported) Pantoprazole Sodium Sesquihydr (Protonix), 40 MG PO BID Patients Own Medication (Patients Own Medication), 20 MG PO HS, (Reported) Sitagliptin Phosphate (Januvia), 100 MG PO DAILY Sucralfate (Carafate Susp), 10 ML PO TID Discharge Statement: "Patient was advised to return to the ER or call 911 if any headaches, dizziness, shortness of breath, chest pain, abdominal pain, bleeding, fevers, or worsening of medical condition. Patient was counseled about treatment plan, medications, possible side effects, patientverbalized understanding. All questions were answered to the best of my ability. This discharge took greater then 30 minutes in planning, reviewing documentation, counseling the patient, and discussing with other team members." ASSESSMENT ASSESSMENT Assessment Peptic ulcer disease OK SAHU Jun 14, 2025 12:52
[2025-06-14 13:00] VITALS: BP 141/101; PULSE 81; RESP 16; TEMP 98; O2SAT 97
--- NOTE | 2025-06-14 14:09 | ECG ---
[facility] Test Date: 2025-06-13 Test Time: 11:31:07 Pat Name: ELIZABETH JEAN Department: ED Room: 0287 Gender: M Coloring Room Man: kym : 1970 Requested By: MARIEL PICHARDO Order Number: [id number] Reading MD: Measurements Intervals [place] Rate: 86 P: 35 RI: 165 QRS: 24 QRSD: 90 T: 17 QT: 355 QTc: 425 Interpretive Statements Sinus rhythm Please click the below link to view image of tracing.
[2025-06-14] MEDS: POTASSIUM EFFERVESENT TAB 25 MEQ PO ONE (14:49)
[2025-06-14 15:17] VITALS: BP 146/97; PULSE 71; RESP 16; TEMP 36.8; O2SAT 98
[2025-06-15] MEDS ORDERED: INSULIN LANTUS (GLARGINE) 1 /0.01ml (100units/ml) SC SCH (07:00)
== END 2025-06-14 16:15 | disposition home or self-care (01) | DRG 241 ==
LOC: ER 11:23 → OVERFLOW 16:23 → WEST WING 23:09
PROVIDERS: ADMIT Student in an Organized Health Care Education/Training Program; ATTEND Physician Assistant
DX: K27.9 Peptic ulcer, site unspecified, unspecified as acute or chronic, without hemorrhage or perforation (principal); K76.0 Fatty (change of) liver, not elsewhere classified; E11.43 Type 2 diabetes mellitus with diabetic autonomic (poly)neuropathy; K31.84 Gastroparesis; E78.5 Hyperlipidemia, unspecified; I10 Essential (primary) hypertension; E87.6 Hypokalemia; K29.70 Gastritis, unspecified, without bleeding; F41.9 Anxiety disorder, unspecified; Z79.84 Long term (current) use of oral hypoglycemic drugs
CPT/HCPCS: 36415; 74176; 76705; 80053; 80320; 81001; 82550; 82962; 83036; 83690; 84484; 85025; 93005; 96374; G0378; J1885; J2470